=== PATIENT | male | born 1985 | race African-American/Black ===

== ENCOUNTER 2020-05-22 11:41 | Emergency (ER) | payer SELFPAY ==
[2020-05-22 11:43] VITALS: BP 129/70; PULSE 836; RESP 16; TEMP 37.3; O2SAT 99; BMI 26.4
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
== END 2020-05-22 15:07 | disposition home or self-care (01) ==
LOC: HO.ED 14:30
PROVIDERS: Emergency Provider Emergency Medicine
DX: Z04.1 Encounter for examination and observation following transport accident (principal); G89.11 Acute pain due to trauma; M54.6 Pain in thoracic spine
CPT/HCPCS: 70450; 72070; 72100; 72125; 99283